=== PATIENT | female | born 1990 | race African-American/Black ===

== ENCOUNTER 2017-07-25 01:43 | Inpatient (IN) | payer OTHER ==
[~2017-07-25] VITALS: Ht 167.6 cm; Wt 86.2 kg
[2017-07-25] MEDS ORDERED: PRENATAL TABLE1 EAC1 PO (02:56)
[2017-07-27] MEDS ORDERED: IBUPROFEN800 MG PO (13:25)
[2017-07-27] MEDS ORDERED: ACETAMINOPHEN500 M1 PO (13:25)
== END 2017-07-27 13:34 | DRG 775 ==
LOC: OB/GYN 01:43 → LDR 01:43 → O/R 10:03 → OB/GYN 13:06
PROVIDERS: Obstetrics & Gynecology
PROC: 10E0XZZ Delivery of Products of Conception, External Approach (ICD-10-PCS; 2017-07-25)
PROC: 4A1HXCZ Monitoring of Products of Conception, Cardiac Rate, External Approach (ICD-10-PCS; 2017-07-25)
PROC: 4A033R1 Measurement of Arterial Saturation, Peripheral, Percutaneous Approach (ICD-10-PCS; 2017-07-25)
PROC: 0KQM0ZZ Repair Perineum Muscle, Open Approach (ICD-10-PCS; principal; 2017-07-25 09:45)
DX: O70.1 Second degree perineal laceration during delivery (principal); Z37.0 Single live birth; Z3A.38 38 weeks gestation of pregnancy